=== PATIENT | female | born 1965 | race Caucasian/White ===

== ENCOUNTER → 2017-01-03 | Outpatient (CLI) | payer OTHER ==
[~2017-01-03] MED LIST: IBUP200T64 PO; METH750T87 PO; OXYC5TAB3 PO; TRAM50TA2 PO
[2017-01-03 13:07] LABS: BLOOD UREA NITROGEN 11 mg/dL (7-18)
[2017-01-03 13:32] LABS: ASPARTATE AMINO TRANSFERASE 21 U/L (15-37)
[2017-01-04 15:06] LABS: ANA SCREEN NEGATIVE (Negative)
[2017-01-04 15:18] LABS: RHEUMATOID FACTOR SCREEN NEGATIVE (NEGATIVE)
== END | disposition home or self-care (01) ==
LOC: CFH 10:26
PROVIDERS: ATTEND Internal Medicine
DX: I10 Essential (primary) hypertension (principal); R20.9 Unspecified disturbances of skin sensation; M25.50 Pain in unspecified joint
CPT/HCPCS: 36415; 71020; 80053; 80061; 82306; 82550; 82607; 82746; 84443; 84550; 85025; 85651; 86038; 86140; 86430

== ENCOUNTER 2017-04-04 11:23 | Emergency (ER) | payer OTHER ==
[~2017-04-04] VITALS: Ht 160 cm; Wt 80.0 kg
[2017-04-04] MEDS ORDERED: SODIUM CHLORIDE 0.9% 1,000ML IVBOLUS ONE (12:30)
[2017-04-04] MEDS ORDERED: FAMOTIDINE 20 MG/2 ML IVP ONE (12:30)
[2017-04-04] MEDS ORDERED: SODIUM CHLORIDE FLUSH 10ML SYR IVF ONE (12:30)
[2017-04-04] MEDS ORDERED: FAMOTIDINE 20 MG/2 ML ONE (13:25)
[2017-04-04 13:32] LABS: BLOOD UREA NITROGEN 10 mg/dL (7-18)
[2017-04-04 13:40] LABS: ASPARTATE AMINO TRANSFERASE 18 U/L (15-37)
[2017-04-04 15:09] VITALS: BP 120/72
== END 2017-04-04 15:19 | disposition home or self-care (01) ==
LOC: ED 15:13
DX: R55 Syncope and collapse (principal); R10.13 Epigastric pain; I10 Essential (primary) hypertension; Z90.710 Acquired absence of both cervix and uterus
CPT/HCPCS: 36415; 71020; 76700; 80053; 81003; 83690; 84484; 84703; 85025; 86677; 93005; 96374; 99285; J7030; S0028

== ENCOUNTER → 2017-04-25 | Outpatient (CLI) | payer OTHER ==
[~2017-04-25] MED LIST changes: +REGADENOSON 0.4 MG/5 ML SYRINGE ONE
== END | disposition home or self-care (01) ==
LOC: CFH 08:17
PROVIDERS: ATTEND Physician Assistant
DX: R07.89 Other chest pain (principal)
CPT/HCPCS: 78452; 93017; A9502; J2785

== ENCOUNTER 2020-09-03 10:32 | Emergency (ER) | payer OTHER ==
[~2020-09-03] VITALS: Ht 167.6 cm; Wt 76.5 kg
[~2020-09-03 10:32] MED LIST changes: -REGADENOSON 0.4 MG/5 ML SYRINGE ONE
--- NOTE | 2020-09-03 10:45 | NUR ---
pt biba for c/o htn x 1.5 days as measured at home, chest pressure and facial flushing x 1 day, intermittent left arm tingling x 1 week, intermittent headache "behind both eyes" x 2 weeks. report taken from [facility]. pt is a&ox4, neuro intact, bilateral grasp equal, no drift. pt rates sternal chest pressure as 3/10, non-radiating. all monitors in place. ekg taken by edt. awaiting lab and imaging at this time. call light in reach.
[2020-09-03 11:09] LABS: BASOPHILS % (AUTO) 1 % (0-1); EOSINOPHILS % (AUTO) 1 % (1-7); LYMPHOCYTES % (AUTO) 27 % (22-44); MEAN CORPUSCULAR HEMOGLOBIN 31.9 pg (27.0-34.8); MEAN CORPUSCULAR HGB CONC 34.3 g/dL (32.4-35.8); MEAN PLATELET VOLUME 6.8 fL (7.4-10.4); MONOCYTES % (AUTO) 9 % (2-9); NEUTROPHILS % (AUTO) 62 % (42-75); PLATELET COUNT 336 x10^3/uL (130-400); RED BLOOD COUNT 4.34 x10^6/uL (3.82-5.3)
[2020-09-03 11:15] LABS: MD NO
[2020-09-03 11:21] LABS: ALANINE AMINOTRANSFERASE 22 U/L (12-78); ALBUMIN 3.8 g/dL (3.4-5.0); ANION GAP 2 mmol/L (5-15); CHLORIDE 112 mmol/L (98-107); CREATININE 0.71 mg/dL (0.55-1.02)
[2020-09-03 11:26] LABS: ALKALINE PHOSPHATASE 71 U/L (45-117); BILIRUBIN,TOTAL 0.6 mg/dL (0.2-1.0); TOTAL PROTEIN 7.1 g/dL (6.4-8.2); TROPONIN I < 0.015 ng/mL (0.000-0.045)
[2020-09-03 12:35] VITALS: BP 143/86
--- NOTE | 2020-09-03 12:38 | NUR ---
pt resting on gurney, a&o, resps even and unlabored. nsr on engine monitor. call light in reach. results and poc reviewed, pt given dc instructions and script. educated regarding rx for hctz. piv dc'd with tip intact. pt ambulatory to dc desk with steady gait, all questions answered.
== END 2020-09-03 12:40 | disposition home or self-care (01) ==
LOC: ED 11:05
DX: I10 Essential (primary) hypertension (principal); R07.89 Other chest pain; R51.9 Headache, unspecified; R20.0 Anesthesia of skin; Z90.89 Acquired absence of other organs; Z90.49 Acquired absence of other specified parts of digestive tract; Z90.710 Acquired absence of both cervix and uterus
CPT/HCPCS: 36415; 70450; 71045; 80053; 84484; 85025; 93005; 99285

== ENCOUNTER 2021-01-19 08:38 | Day surgery (SDC) | payer OTHER ==
[~2021-01-19] VITALS: Ht 154.9 cm; Wt 70.5 kg
[~2021-01-19 08:38] MED LIST changes: +CALC-534 PO; +CHOL10003 PO; +EPINEPHRINE TOPICAL SOLN 1 MG/ML, 30ML ONE; +FAMO20TA3 PO; +LORA-439 PO; +MONT10TA17 PO; -OXYC5TAB3 PO; +OXYC5TAB98 PO; +POTA10TA31 PO; +QVAR NAS; +VALS320T2 PO; +[UNRECOGNIZED DRUG - CODE] PO
[2021-01-19 09:22] VITALS: BP 126/77
[2021-01-19] MEDS ORDERED: LACTATED RINGERS 1,000 ML IV SCH (09:30)
[2021-01-19] MEDS ORDERED: CHLORHEXIDINE 15 ML UDC PO ONE (09:30)
[2021-01-19] MEDS ORDERED: PROPOFOL 50 ML ONE (09:44)
[2021-01-19] MEDS ORDERED: FENTANYL PF 250 MCG/5ML ONE (09:46)
[2021-01-19] MEDS ORDERED: MIDAZOLAM 1 MG/ML, 2ML ONE (09:46)
[2021-01-19 09:50] LABS: ALANINE AMINOTRANSFERASE 27 U/L (12-78); ALBUMIN 4.3 g/dL (3.4-5.0); ANION GAP 6 mmol/L (5-15); CALCIUM 9.2 mg/dL (8.5-10.1); CHLORIDE 111 mmol/L (98-107)
[2021-01-19 09:53] LABS: ALKALINE PHOSPHATASE 83 U/L (45-117); BILIRUBIN,TOTAL 0.6 mg/dL (0.2-1.0); CREATININE 0.75 mg/dL (0.55-1.02)
[2021-01-19] MEDS ORDERED: DEXAMETHASONE 4 MG/ML, 1ML ONE (10:10)
[2021-01-19] MEDS ORDERED: ONDANSETRON 2MG/ML, 2ML ONE (10:10)
[2021-01-19] MEDS ORDERED: PROPOFOL 10 MG/ML, 20ML ONE (10:11)
[2021-01-19] MEDS ORDERED: FENTANYL PF 100 MCG/2ML IV PRN (10:30)
[2021-01-19] MEDS ORDERED: OXYcodone 5 MG/5 ML ORAL.SOL UDC PO PRN (10:30)
[2021-01-19] MEDS ORDERED: HYDROmorphone 1 MG/ML, 1ML INJ IVPush PRN (10:30)
[2021-01-19] MEDS ORDERED: DIAZEPAM 5 MG/ML, 2ML IVPush PRN (10:30)
[2021-01-19] MEDS ORDERED: ONDANSETRON 2MG/ML, 2ML IVPush PRN (10:30)
[2021-01-19] MEDS ORDERED: DIPHENHYDRAMINE 50 MG/ML, 1ML IVPush PRN (10:30)
[2021-01-19] MEDS ORDERED: EPHEDRINE 50 MG/ML, 1ML IM PRN (10:30)
[2021-01-19] MEDS ORDERED: MEPERIDINE/PF 25MG/0.5ML IVPush PRN (10:30)
[2021-01-19] MEDS ORDERED: EPHEDRINE 50 MG/ML, 1ML IVPush PRN (10:30)
[2021-01-19] MEDS ORDERED: LABETALOL 5MG/ML, 20ML IV PRN (10:30)
[2021-01-19] MEDS ORDERED: PROMETHAZINE 25 MG/ML, 1ML IVPush PRN (10:30)
[2021-01-19] MEDS ORDERED: ACETAMINOPHEN 650 MG/20.3 ML UDC ONE (11:17)
[2021-01-19] MEDS ORDERED: ACETAMINOPHEN 650 MG/20.3 ML UDC PO PRN (11:30)
== END 2021-01-19 12:30 | disposition home or self-care (01) ==
LOC: OUT 08:38
PROVIDERS: ATTEND Otolaryngology
DX: J38.01 Paralysis of vocal cords and larynx, unilateral (principal); I10 Essential (primary) hypertension; I25.10 Atherosclerotic heart disease of native coronary artery without angina pectoris; E78.00 Pure hypercholesterolemia, unspecified; J45.909 Unspecified asthma, uncomplicated; Z20.822 Contact with and (suspected) exposure to COVID-19; Z79.899 Other long term (current) drug therapy
CPT/HCPCS: 31571; 36415; 80053; 87635; C1878; J1100; J2250; J2405; J2704; J3010